=== PATIENT | male | born 1960 | race Caucasian/White ===

== ENCOUNTER 2018-10-23 17:08 | Emergency (ER) | payer BC ==
[2018-10-23 17:40] VITALS: BP 154/92; PULSE 90; TEMP 98.2; BMI 32.8
[2018-10-23] MEDS ORDERED: ACETAMINOPHEN 500 MG TABLET (FP) PO ONE (18:06)
[2018-10-23] MEDS ORDERED: ACETAMINOPHEN 500 MG TABLET (FP) ONE (18:07)
--- NOTE | 2018-10-23 18:09 | PDOC ---
History of Present Illness - General Chief Complaint: Injury Stated Complaint: RIGHT EYE LACERATION Time Seen by Provider: 10/23/18 17:47 - History of Present Illness Initial Comments: 10/23/18 18:06 58-year-old male with a past medical history significant for hypertension and dyslipidemia presents for evaluation after a fall. He states he was doing work at home standing on top of a countertop when he fell onto his face. He felt dizzy and nauseated there was no loss of consciousness he does have a post injury headache. Past History - Past Medical History Allergies/Adverse Reactions: Allergies Allergy/AdvReac Type Severity Reaction Status Date / Time No Known Allergies Allergy Verified 10/23/18 17:37 Home Medications: Ambulatory Orders NK [No Known Home Medication] 10/23/18 COPD: No HTN: Yes Hypercholesterolemia: Yes - Immunization History Immunization Up to Date: Yes - Suicide/Smoking/Psychosocial Hx Smoking Status: No Smoking History: Never smoked Number of Cigarettes Smoked Daily: 0 Hx Alcohol Use: No Drug/Substance Use Hx: No Review of Systems - Review of Systems HEENTM: No: Recent change in vision, Double Vision ABD/GI: Yes: Nausea. No: Vomiting Neurological: Yes: Headache, Dizziness *Physical Exam - Vital Signs Last Vital Signs Temp Pulse Resp BP Pulse Ox 98.2 F 90 16 154/92 95 10/23/18 17:38 10/23/18 17:38 10/23/18 17:38 10/23/18 17:38 10/23/18 17:38 - Physical Exam Comments: 10/23/18 18:07 HEAD: NC/ there is approximately a 2 cm linear laceration on the lateral aspect of the right upper eye lid exposing subcutaneous fat. There is surrounding ecchymosis and swelling. As well as an abrasion. EYES: Conjuntiva clear; EOMI PERRL Ears: Canals and TM's normal NOSE: No d/c THROAT: Moist mucous membrances, oral pharanx clear, uvula midline NECK: Supple without adenopathy CARDIAC: S1 S2 LUNGS: CTA Full and Equal breath sounds ABDOMEN: Soft NT ND MS: Full ROM in all joints without edema NEUROLOGIC: No gross sensory or motor deficits, NVID SKIN: Normal color and temperature no lesions or rashes ED Treatment Course - RADIOLOGY Radiology Studies Ordered: Category Date Time Status FACIAL BONES CT W/O CONTRAST [CT] Stat CT Scan 10/23/18 18:[address] WITHOUT CONTRAST [CT] Stat CT Scan 10/23/18 18:06 Ordered Medical Decision Making - Medical Decision Making 10/23/18 18:08 Under aseptic technique 1% lidocaine 6 mL in total was injected into the area of the laceration this was tolerated well. The wound was irrigated to its base in a bloodless field there was no identification of a foreign body. The wound was then irrigated and closed with 5 interrupted sutures using 5-0 Prolene this was tolerated well. *DC/Admit/Observation/Transfer Diagnosis at time of Disposition: Laceration, Concussion - Discharge Dispostion Disposition: HOME Condition at time of disposition: Stable Decision to Admit order: No - Referrals Referrals: Nakul Renner MD [Primary Care Provider] - Main Cardoza MD [Staff Physician] - - Patient Instructions Printed Discharge Instructions: DI for Laceration Repair, Concussion, Postconcussion Syndrome, DI for Postconcussion Syndrome, DI for Concussion Additional Instructions: Please take Tylenol as directed for pain. Return to the emergency room for worsening symptoms. Follow-up with neurology in 1-2 days for further evaluation and treatment options. No strenuous activity until cleared by neurology. Return to the emergency room in 7 days for suture removal or you may follow-up with your primary care physician for suture removal - Post Discharge Activity
== END 2018-10-23 19:34 | disposition home or self-care (01) ==
LOC: JERFT 17:08
PROC: 08QNXZZ Repair Right Upper Eyelid, External Approach (ICD-10-PCS; principal; 2018-10-23)
DX: S06.0X0A Concussion without loss of consciousness, initial encounter (principal); S01.111A Laceration without foreign body of right eyelid and periocular area, initial encounter; W17.89XA Other fall from one level to another, initial encounter; Y93.89 Activity, other specified; Y92.018 Other place in single-family (private) house as the place of occurrence of the external cause; Y99.8 Other external cause status; I10 Essential (primary) hypertension; E78.5 Hyperlipidemia, unspecified; E78.00 Pure hypercholesterolemia, unspecified
CPT/HCPCS: 70450-TC; 70486-TC; 99282-25

== ENCOUNTER 2022-05-29 11:32 | Emergency (ER) | payer BC ==
[2022-05-29 11:38] VITALS: BP 135/90; PULSE 109; RESP 18; TEMP 98.5; BMI 34.4
== END 2022-05-29 17:16 | disposition home or self-care (01) ==
LOC: JER 11:32
DX: J06.9 Acute upper respiratory infection, unspecified (principal)
CPT/HCPCS: 0241U-QW; 71046-TC-FY; 99284-25